=== PATIENT | female | born 2000 | race Caucasian/White ===

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

== ENCOUNTER 2021-05-18 16:45 | Emergency (ER) | payer BC ==
[2021-05-18] MEDS ORDERED: Diazepam 5 MG TAB ONE (23:08)
[2021-05-18] MEDS ORDERED: Ketorolac Tromethamine 30 MG/ML VIAL ONE (23:08)
[2021-05-19] MEDS ORDERED: Metoclopramide HCl 10 MG/2 ML VIAL ONE (00:16)
== END 2021-05-19 00:45 | disposition home or self-care (01) ==
LOC: ERS 16:45
DX: R51.9 Headache, unspecified (principal); F95.9 Tic disorder, unspecified
CPT/HCPCS: 70450; 96372; J1885; J2765

== ENCOUNTER 2024-10-24 19:42 | Emergency (ER) | payer BC ==
[2024-10-24 20:16] LABS: #Basophils 0.05 10x3/uL (0.0-0.2); %Basophils 0.4 % (0.0-1.0); %Eosinophils 0.5 % (0.0-10.0); %Lymphocytes 27.3 % (21.0-51.0); %Monocytes 5.2 % (0.0-10.0); %Neutrophils 66.3 % (42.0-75.0); Hematocrit 37.8 % (36.0-47.0); Mean Corpuscular HGB CONC 31.7 g/dL (32.0-36.0); Mean Corpuscular Hemoglobin 25.4 pg (27.0-31.0); Mean Corpuscular Volume 79.9 fL (78.0-98.0); Mean Platelet Volume 9.6 fL (7.4-10.4); Platelet Count 387 10x3/uL (130-400); RBC Distribution Width 13.7 % (11.5-14.5); Red Blood Cell (RBC) Count 4.73 mill/uL (4.20-5.40)
[2024-10-24] MEDS ORDERED: Morphine 4 MG/ML VIAL ONE (20:29)
[2024-10-24] MEDS ORDERED: Famotidine/PF 20 mg/2ml Vial ONE (20:29)
[2024-10-24 20:34] LABS: ALT (SGPT) 11 U/L (8-55); AST (SGOT) 9 U/L (5-34); Albumin 3.1 g/dL (3.5-5.0); Alkaline Phosphatase 97 U/L (40-110); Anion Gap 14 mmol/L (10-20); BUN (Urea Nitrogen) 12 mg/dL (7.0-18.7); Bilirubin, Total 0.3 mg/dL (0.2-1.2); Calc. Creatinine Clearance 0 mL/min (70-130); Calcium 9.3 mg/dL (7.8-10.44); Carbon Dioxide 21 mmol/L (22-29); Chloride 106 mmol/L (98-107); Estimated GFR 109; Globulin 4.1 g/dL (2.4-3.5); Glucose 96 mg/dL (70-105); Lipase 13 U/L (8-78); Potassium 3.8 mmol/L (3.5-5.1); Protein, Total 7.2 g/dL (6.0-8.3); Sodium 137 mmol/L (136-145)
[2024-10-24 20:37] LABS: Troponin I Less than 0.010 ng/mL (< 0.028)
[2024-10-24] MEDS ORDERED: Acetaminophen 500 MG TAB ONE (21:20)
[2024-10-24] MEDS ORDERED: hydrOXYzine 25 MG TAB ONE ×2 (21:20→21:27)
[2024-10-24] MEDS ORDERED: Ondansetron PF 4 MG/2 ML Vial ONE (21:21)
== END 2024-10-24 21:53 | disposition home or self-care (01) ==
LOC: ERS 19:42
DX: R07.89 Other chest pain (principal)
CPT/HCPCS: 36415; 71045; 80053; 83690; 84484; 85025; 85379; 93005; 96374; 96375; J2272; J2405; J3490